=== PATIENT | female | born 1985 | race Caucasian/White ===

== ENCOUNTER 2020-12-29 10:06 | Emergency (ER) | payer OTHER ==
--- NOTE | 2020-12-29 10:50 | ED Physician Documentation ---
History of Present Illness - Stated complaint Stated Complaint: RT ARM PX - Chief complaint Chief Complaint: General - History obtained from History obtained from: Patient - History of Present Illness Timing: How many days ago (3) - Additonal information Additional information: 35-year-old previously well female received her Covid vaccination 2 weeks ago and she had some general reaction at the time and then was well and then 3 days ago she developed some redness to an area on her shoulder and this is slowly expanded over the past 3 days. Patient brings in photographs showing an expanding erythema. Patient has not had fever. She rates the pain as a 7 out of 10 and sometimes he gets worse especially if she is using her arm much. She has been using Tylenol and ibuprofen. 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: No - Immunizations Immunizations are current?: Yes PD ED PE NORMAL - Vitals Vital signs reviewed: Yes (Normal) - General General: Alert and oriented X 3, No acute distress, Well developed/nourished - HEENT HEENT: Atraumatic, PERRL, EOMI - Respiratory Respiratory: No respiratory distress - Derm Derm: Normal color, Warm and dry - Extremities Extremities: No deformity, Other (There is a circular patch 4 cm in diameter that is erythematous and firm and tender. 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, No motor deficit, No sensory deficit, Normal speech Eye Opening: Spontaneous Motor: Obeys Commands Verbal: Oriented GCS Score: 15 - Psych Psych: Normal mood, Normal affect Results - Vitals Vitals: Vital Signs - 24 hr 12/29/20 10:13 Temperature 36.8 C Heart Rate 93 Respiratory 18 Rate Blood Pressure 118/66 O2 Saturation 98 Oxygen O2 Source Room air PD MEDICAL DECISION MAKING - ED course Complexity details: considered differential, d/w patient ED course: 35-year-old female with a reaction to the Covid vaccination appears to have a skin infection that has progressively increased in size over the past 3 days nearly 2 weeks after her inoculation. This appears to be a slowly progressing infection. We will place patient on doxycycline and expect resolution. Departure - Departure Disposition: 01 Home, Self Care Clinical Impression: Cellulitis Qualifiers: Site of cellulitis: extremity Site of cellulitis of extremity: upper extremity Laterality: right Qualified Code(s): L03.113 - Cellulitis of right upper limb Condition: Stable Instructions: ED Infec Skin Cellulitis Follow-Up: KIAN AREVALO PA-C [Primary Care Provider] - Prescriptions: Doxycycline Hyclate 100 mg PO BID #14 tab
[2020-12-29 11:02] VITALS: BP 111/78
== END 2020-12-29 11:01 | disposition home or self-care (01) ==
LOC: ED 10:06
DX: L03.113 Cellulitis of right upper limb (principal); L53.0 Toxic erythema; T50.B95A Adverse effect of other viral vaccines, initial encounter
CPT/HCPCS: 99282; 99284

== ENCOUNTER 2022-09-05 13:46 | Outpatient (CLI) | payer OTHER ==
[2022-09-05] MEDS ORDERED: SODIUM CHLORIDE FLUSH 0.9% 10 ML SYRINGE IVP PRN (14:22)
[2022-09-05 14:39] LABS: BASOPHILS % (AUTO) 0.3 %; EOSINOPHILS % (AUTO) 0.3 %; HCT - HEMATOCRIT 40.8 % (37.0-47.0); HGB - HEMOGLOBIN 13.9 g/dL (12.0-16.0); LYMPHOCYTES # (AUTO) 2.4 10^3/uL (1.5-3.5); LYMPHOCYTES % (AUTO) 22.5 %; MEAN CORPUSCULAR HEMOGLOBIN 32.4 pg (27.0-31.0); MEAN CORPUSCULAR HGB CONC 34.1 g/dL (32.0-36.0); MEAN CORPUSCULAR VOLUME 95.1 fL (81.0-99.0); MEAN PLATELET VOLUME 9.2 fL (7.9-10.8); MONOCYTES # (AUTO) 0.9 10^3/uL (0.0-1.0); NEUTROPHILS # (AUTO) 7.3 10^3/uL (1.5-6.6); NEUTROPHILS % (AUTO) 68.3 %; PLT - PLATELET COUNT 339 10^3/uL (130-450); RED BLOOD COUNT 4.29 10^6/uL (4.20-5.40); RED CELL DISTRIBUTION WIDTH 12.9 % (12.0-15.0); WHITE BLOOD COUNT 10.7 x10^3/uL (4.8-10.8)
[2022-09-05 15:00] LABS: ALBUMIN 3.2 g/dL (3.2-5.5); BILIRUBIN,TOTAL 0.3 mg/dL (0.2-1.0); CALCIUM 9.3 mg/dL (8.5-10.3); CREATININE 0.6 mg/dL (0.4-1.0); TOTAL PROTEIN 6.4 g/dL (6.7-8.2)
[2022-09-05] MEDS ORDERED: LACTATED RINGERS 1,000 ML IV SCH (15:00)
[2022-09-05 15:19] LABS: CREATININE,URINE 54.6 mg/dL; PROTEIN/CREATININE RATIO,URINE 0.1 (<=0.2)
[2022-09-05 16:46] LABS: BILIRUBIN,URINE NEGATIVE (NEGATIVE); GLUCOSE, URINE (UA) NEGATIVE (NEGATIVE); KETONES,URINE (UA) TRACE mg/dL (NEGATIVE); LEUKOCYTE ESTERASE, URINE TRACE (NEGATIVE); NITRITE,URINE NEGATIVE (NEGATIVE); OCCULT BLOOD,URINE NEGATIVE (NEGATIVE); PH,URINE 6.5 PH (5.0-7.5); PROTEIN,URINE NEGATIVE (NEGATIVE); UROBILINOGEN,URINE 0.2 (NORMAL) E.U./dL (NORMAL)
[2022-09-05 16:47] LABS: CLARITY,URINE CLEAR (CLEAR)
[2022-09-05] MEDS ORDERED: SODIUM CHLORIDE FLUSH 0.9% 10 ML SYRINGE IVP SCH (17:00)
--- NOTE | 2022-09-05 17:00 | Ultrasound Report ---
PROCEDURE: Abdomen Limited INDICATIONS: Right lower quadrant pain, 34.4 gest TECHNIQUE: Real-time focused scanning was performed of the abdomen, with image documentation. COMPARISON: None FINDINGS: Liver: No intrahepatic biliary ductal dilatation or mass. Hepatic echotexture is homogenous. Gallbladder: No stones. There is gallbladder wall thickening. No pericholecystic fluid. Biliary tree: Common bile duct measures 5.5 mm. Pancreas: Unable to visualize. Kidneys: The right kidney measures 11.5 cm. There is mild right hydronephrosis. IMPRESSION: 1. Right hydronephrosis, likely due to the late term . 2. No gallstones, however the gallbladder wall is thickened which is probably due to lack of distenti on. 3. The appendix is not visualized. Reviewed by: Kristopher Marques on 09/05/2022 4:59 PM PST Approved by: Kristopher Marques on 09/05/2022 4:59 PM PST Station ID: [id number]
[2022-09-05 17:04] LABS: BACTERIA,URINE Few /HPF (None Seen); RBC,URINE 0-5 /HPF (0-5); SQUAMOUS EPITHELIAL CELL,UR MOD Squamous (<= Few)
--- NOTE | 2022-09-05 17:34 | Ultrasound Report ---
PROCEDURE: OB F/U or Repeat INDICATIONS: Abdominal pain, growth scan, assess placenta OUTSIDE/PRIOR DATING DATA: Last menstrual period (LMP): 01/06/2022. LMP-based estimated date of delivery (DENA): 10/13/2022. First dating scan (date and location): 09/05/2022. Estimated date of delivery (DENA) from first dating scan: 10/13/2021. The below data below was generated using the clinical DENA of 10/13/2022 TECHNIQUE: Real-time scanning was performed of the fetus, with image documentation and biometric measurements. COMPARISON: Same day MRI pelvis. FINDINGS: General: A single living intrauterine gestation is present. Presentation: Vertex Placenta: Placental position is fundal/right lateral, without previa. Amniotic fluid index: 11.2 cm, normal for gestational age. Largest pocket 3.4 cm. heart rate: 135 beats per minute. Maternal cervical canal: Not well seen. biometrics: Biparietal diameter: 8.3 cm, 33 weeks 3 days Head circumference: 30.6 cm, 34 weeks 1 day Abdominal circumference: 31.3 cm, 35 weeks 2 days Femur length: 6.3 cm, 32 weeks 5 days Estimated gestational age from initial scan: 34 weeks 4 days Composite gestational age from present scan: 33 weeks 6 days Estimated weight and percentile: 2002 182 g, 35th percentile Measurement variability in biometric dating: +/- 10 days from 12-20 weeks gestation, +/- 2 weeks from 20-30 weeks gestation, +/- 3 weeks at 30 weeks gestation or more. Other: No gross abnormality identified. IMPRESSION: 1. Christine living intrauterine at 33 weeks 6 days based on today's ultrasound. This is co ncordant with the prior dating. Fetus is in the 35th percentile for weight. 2. Normal placenta and amniotic fluid. Reviewed by: Remi Whipple MD on 09/05/2022 5:33 PM PST Approved by: Remi Whipple MD on 09/05/2022 5:33 PM PST Station ID: [id number]
--- NOTE | 2022-09-05 17:52 | MRI Report ---
PROCEDURE: PELVIS WO INDICATIONS: RIGHT LOWER ABD PAIN 34W TECHNIQUE: T2 coronal haste, T2 axial haste, T2 sagittal haste, T2 axial haste, T1 vibe with fat saturation, res tricted diffusion sequences, T1 in and opposed phase images. Hloc-qn-[id number] axial. COMPARISON: Same day pelvic ultrasound.. FINDINGS: Image quality: Excellent. Christine living intrauterine . Vertex position. No gross abnormality. Fundal/posterior plac enta. No previa. Amniotic fluid is subjectively normal. Maternal pelvocaliectasis bilaterally of . No dilated loops of maternal bowel. The appendix is seen in the right lower quadrant and is not dilated, (4/22). No free fluid. No adenopathy demonstr ated. Maternal bladder is decompressed. No ovarian cysts are seen. No hernia demonstrated. No focal m aternal osseous lesion. IMPRESSION: 1. No maternal appendicitis. No free fluid. 2. Physiologic maternal bilateral pelvocaliectasis. 3. Christine living intrauterine . Vertex position. Normal appearance of the placenta. Subje ctively normal amniotic fluid. No gross abnormality identified. Reviewed by: Remi Whipple MD on 09/05/2022 5:50 PM PST Approved by: Remi Whipple MD on 09/05/2022 5:50 PM PST Station ID: [id number]
--- NOTE | 2022-09-05 18:17 | PROVIDER PROGRESS NOTE ---
- HPI Chief Complaint: Pain, non-labor Current : Current EDU 10/13/22 Gestation 34 Weeks and 4 Days 2 Para 0 Vital Signs Temperature 97.9 F 09/05/22 14:01 Heart Rate 86 09/05/22 14:01 Respiratory Rate 18 09/05/22 14:01 Blood Pressure 119/77 09/05/22 14:01 Temperature 97.6 F L 09/05/22 17:37 Heart Rate 74 09/05/22 17:37 Respiratory Rate 18 09/05/22 17:37 Blood Pressure 119/58 L 09/05/22 17:37 O2 Saturation 96 09/05/22 17:37 If not protocol: Oxygen Flow, liters/minute - Procedures OB Procedure Performed: NST Diagnosis/Indication for NST: labor NST Procedure: NST Procedure Start Date 09/05/22 Start Time 13:56 Vibroacoustic Stimulation Used No Patient States Movement Yes EFM: 130s, moderate variability, positive 15x15 accelerations, no decelerations Firth: contractions q2-4m, not noted by patient NST reactive/Cat 1 Performed and read 09/05/22 Service Date of procedure: 09/05/22 - Plan Plan: 37yo at 34.4w by LMP consistent with first trimester US presents with her for severe abdominal pain. Tearful from pain at initial p resentation. She reports getting up from a meeting and having sharp pain right side. Denies abdominal trauma. Denies contractions, leaking fluid or vaginal bleeding. Good movement. Had a smoothie for breakfast but did not eat anything else today due to pain around lunch. Nausea and vomiting x2 yesterday. Denies diarrhea, painful urination. Has had kidney stones but this does not feel similar. She is mick on the monitor but does not have discomfort when detected. After labs and imaging and IVF bolus, her pain is much improved and appears comfortable. complicated by hypothyroidism and elevated 1h GTT 171. Allergies: sertraline, sumatriptan Meds: levothyroxine Med: hypothroidism, kidney stones Surg: Lithotripsy, breast reduction Fam: hypothyroidism, heart disease, hypertension Social: to AD , she works for [employer], denies MONTSE or DV labs: 03/23/22- VDRL NR GCCT neg Hep b, c neg HIV neg rubella immune Varicella -NI Quad neg 1h GTT elevated 171 VSS GEN: Initial presentation patient appeared to be in acute distress and tearful CV: Regular rate Resp: Breathing unlabored Abd: soft, TTP right side Ext: nt SVE: /-3, exam repeated q2h, unchanged during three SVE NST reactive, with regular contractions not appreciated by patient CBC, CMP, PCR, UA benign OB US: cephalic, normal placenta fundal, LUISA 11cm, EFW 35th%, 2182g ABD US: right hydronephrosis, gallbladder wall thickening, appendix not visualized PEL MRI: no maternal appendicitis, physiologic bilateral pelvocaliectasis, normal placenta 37yo at 34.4w by LMP consistent with first trimester US, with abdominal pain in third trimester - Initially appeared in significant discomfort. PE, VSS, lab and imaging evaluation all benign as above. She was given 1L LR bolus in triage. By the end of her triage visit she was comfortable, no pain medications given. - Does not appear to be in labor. She is having contractions, but cervix remains unchanged at 1cm. Is not feeling contractions detected. - She feels comfortable going home this evening and has follow up scheduled with her primary OB at in two days. - Return precautions reviewed, labor precautions. All questions answered, discharge to home.
[2022-09-05 18:37] VITALS: BP 113/71
== END 2022-09-05 18:20 | disposition home or self-care (01) ==
LOC: WFO 13:46 → FBP 13:49 → WFO 18:20
PROVIDERS: ATTEND Obstetrics & Gynecology
DX: O99.891 Other specified diseases and conditions complicating pregnancy (principal); R10.9 Unspecified abdominal pain; R10.819 Abdominal tenderness, unspecified site; O47.03 False labor before 37 completed weeks of gestation, third trimester; Z3A.34 34 weeks gestation of pregnancy; Z87.442 Personal history of urinary calculi
CPT/HCPCS: 36415; 59025; 72195; 76705; 76816; 80053; 81001; 82570; 84156; 84550; 85025; 87086; 96360; 99215; J7120; 81003; 87797